=== PATIENT | female | born 1955 | race Caucasian/White ===

== ENCOUNTER 2020-12-04 19:57 | Inpatient (IN) ==
[2020-12-05] MEDS: *HR* OxyCODONE Immed Rel 5 MG TABLET PO PRN (23:07)
[2020-12-05] MEDS: CEFADROXIL 1 GM PO SCH (23:10)
[2020-12-06] MEDS: *HR* OxyCODONE Immed Rel 5 MG TABLET PO PRN ×3 (06:48→22:20)
[2020-12-06 07:26] LABS: Basophils # 0.1 K/mcL (0.0-0.2); Basophils % 0.7 %; Eosinophils # 0.7 K/mcL (0.0-0.6); Eosinophils % 5.7 %; Hematocrit 27.8 % (35.3-44.9); Hemoglobin 8.9 g/dL (11.5-15.4); Immature Granulocytes % 0.6 % (0-4); Lymphocytes # 1.2 K/mcL (0.6-4.6); Lymphocytes % 9.6 %; Mean Corpuscular Hemoglobin 31.9 pg (28.0-33.3); Mean Corpuscular Volume 99.6 fL (83.0-100.0); Mean Platelet Volume 10.1 fL (9.4-12.4); Monocytes # 1.1 K/mcL (0.0-1.3); Monocytes % 9.1 %; Platelet Count 283 K/mcL (140-400); Red Blood Count 2.79 M/mcL (3.82-4.97); Red Cell Distribution Width 13.2 % (11.5-14.5); Segmented Neutrophils % 74.3 %; White Blood Count 12.1 K/mcL (4.3-11.1)
[2020-12-06 07:51] LABS: Alanine Aminotransferase 14 Units/L (7-52); Albumin 2.8 g/dL (3.5-5.7); Albumin/Globulin Ratio 1.1 (1.1-2.2); Alkaline Phosphatase 81 Units/L (34-104); Aspartate Amino Transferase 23 Units/L (13-39); BUN/Creatinine Ratio 38 (6-26); Bilirubin,Total 0.7 mg/dL (0.3-1.0); Blood Urea Nitrogen 26 mg/dL (8-23); Calcium 8.3 mg/dL (8.6-10.3); Carbon Dioxide 31 mEq/L (23-29); Chloride 100 mEq/L (98-107); Globulin 2.5 g/dL (2.4-3.5); Glucose 114 mg/dL (70-105); Osmolality,Calculated 288 (280-300); Potassium 4.2 mEq/L (3.5-5.1); Sodium 136 mEq/L (136-145); Total Protein 5.3 g/dL (6.4-8.9); eGFR For African Americans > 60 (> 60); eGFR For Non-African Americans > 60 (> 60)
[2020-12-06] MEDS ORDERED: Losartan/HCTZ 50-12.5 TABLET PO SCH (09:00)
[2020-12-06] MEDS: Folic Acid 1 MG TABLET PO SCH (09:41)
[2020-12-06] MEDS: *HR* Rivaroxaban 10 MG TABLET PO SCH (09:42)
[2020-12-06] MEDS: Multivit/Ca/Min/Fe/FA 1 TAB TABLET PO SCH (09:42)
[2020-12-06] MEDS: CEFADROXIL 1 GM PO SCH (09:58)
[2020-12-06] MEDS: (Omega-3/Dha/Epa/Fish Oil [Fish Oil 1,000 Mg Softgel] PO SCH ×2 (09:58→22:19)
[2020-12-06] MEDS ORDERED: Bisacodyl 10 MG RECTAL SUPPOSITORY RC PRN (11:06)
[2020-12-06] MEDS: Sennosides/Docusate Sodium TABLET PO SCH ×2 (14:19→22:20)
[2020-12-06] MEDS: polyethylene glycoL 3350 17 GM POWD.PACK PO SCH (14:19)
[2020-12-06] MEDS: MOM Conc 10 ML UD.LIQ PO PRN (14:20)
[2020-12-06] MEDS: cephALEXin 500 MG CAPSULE PO SCH ×2 (14:21→22:19)
[2020-12-07] MEDS: *HR* OxyCODONE Immed Rel 5 MG TABLET PO PRN ×3 (05:43→21:30)
[2020-12-07] MEDS: Folic Acid 1 MG TABLET PO SCH (09:58)
[2020-12-07] MEDS: Sennosides/Docusate Sodium TABLET PO SCH ×2 (09:58→21:28)
[2020-12-07] MEDS: cephALEXin 500 MG CAPSULE PO SCH ×3 (09:58→21:27)
[2020-12-07] MEDS: (Omega-3/Dha/Epa/Fish Oil [Fish Oil 1,000 Mg Softgel] PO SCH ×2 (09:58→21:34)
[2020-12-07] MEDS: *HR* Rivaroxaban 10 MG TABLET PO SCH (09:58)
[2020-12-07] MEDS: Multivit/Ca/Min/Fe/FA 1 TAB TABLET PO SCH (09:58)
[2020-12-07] MEDS: polyethylene glycoL 3350 17 GM POWD.PACK PO SCH (10:01)
[2020-12-07] MEDS ORDERED: Lactulose Oral Soln 20 GM/30 ML UDC PO PRN (15:48)
[2020-12-07] MEDS: Latanoprost 2.5 ML BOTTLE LEFT EYE SCH (21:34)
[2020-12-08] MEDS: *HR* OxyCODONE Immed Rel 5 MG TABLET PO PRN ×3 (04:55→21:52)
[2020-12-08] MEDS: MOM Conc 10 ML UD.LIQ PO PRN (04:56)
[2020-12-08 06:58] LABS: Basophils # 0.1 K/mcL (0.0-0.2); Basophils % 0.9 %; Eosinophils # 0.8 K/mcL (0.0-0.6); Eosinophils % 5.9 %; Hemoglobin 9.4 g/dL (11.5-15.4); Immature Granulocytes % 0.5 % (0-4); Lymphocytes % 7.1 %; Mean Corpuscular HGB Conc 32.4 g/dL (31.6-35.5); Mean Corpuscular Volume 98.6 fL (83.0-100.0); Monocytes # 0.8 K/mcL (0.0-1.3); Monocytes % 6.3 %; Neutrophils # 10.6 K/mcL (1.6-8.9); Platelet Count 347 K/mcL (140-400); Red Blood Count 2.94 M/mcL (3.82-4.97); Red Cell Distribution Width 13.1 % (11.5-14.5); Segmented Neutrophils % 79.3 %; White Blood Count 13.4 K/mcL (4.3-11.1)
[2020-12-08] MEDS: Sennosides/Docusate Sodium TABLET PO SCH ×2 (08:33→21:53)
[2020-12-08] MEDS: *HR* Rivaroxaban 10 MG TABLET PO SCH (08:33)
[2020-12-08] MEDS: polyethylene glycoL 3350 17 GM POWD.PACK PO SCH (08:33)
[2020-12-08] MEDS: cephALEXin 500 MG CAPSULE PO SCH ×3 (08:33→21:51)
[2020-12-08] MEDS: Multivit/Ca/Min/Fe/FA 1 TAB TABLET PO SCH (08:33)
[2020-12-08] MEDS: Folic Acid 1 MG TABLET PO SCH (08:33)
[2020-12-08] MEDS: (Omega-3/Dha/Epa/Fish Oil [Fish Oil 1,000 Mg Softgel] PO SCH ×2 (08:34→21:51)
[2020-12-08] MEDS: Latanoprost 2.5 ML BOTTLE LEFT EYE SCH (21:51)
[2020-12-09] MEDS: *HR* OxyCODONE Immed Rel 5 MG TABLET PO PRN ×2 (05:46→20:12)
[2020-12-09] MEDS: cephALEXin 500 MG CAPSULE PO SCH ×3 (08:47→20:09)
[2020-12-09] MEDS: *HR* Rivaroxaban 10 MG TABLET PO SCH (08:47)
[2020-12-09] MEDS: polyethylene glycoL 3350 17 GM POWD.PACK PO SCH (08:47)
[2020-12-09] MEDS: Folic Acid 1 MG TABLET PO SCH (08:47)
[2020-12-09] MEDS: Multivit/Ca/Min/Fe/FA 1 TAB TABLET PO SCH (08:47)
[2020-12-09] MEDS: (Omega-3/Dha/Epa/Fish Oil [Fish Oil 1,000 Mg Softgel] PO SCH ×2 (08:48→20:09)
[2020-12-09] MEDS: Sennosides/Docusate Sodium TABLET PO SCH ×2 (08:48→20:09)
[2020-12-09 13:40] LABS: Basophils # 0.1 K/mcL (0.0-0.2); Eosinophils # 0.7 K/mcL (0.0-0.6); Eosinophils % 4.7 %; Hemoglobin 9.6 g/dL (11.5-15.4); Immature Granulocytes % 0.4 % (0-4); Lymphocytes # 1.3 K/mcL (0.6-4.6); Lymphocytes % 9.3 %; Monocytes # 0.8 K/mcL (0.0-1.3); Monocytes % 5.8 %; Neutrophils # 11.3 K/mcL (1.6-8.9); Platelet Count 453 K/mcL (140-400); Red Cell Distribution Width 13.2 % (11.5-14.5); Segmented Neutrophils % 78.8 %; White Blood Count 14.3 K/mcL (4.3-11.1)
[2020-12-09 13:53] LABS: BUN/Creatinine Ratio 28 (6-26); Blood Urea Nitrogen 22 mg/dL (8-23); Calcium 8.9 mg/dL (8.6-10.3); Carbon Dioxide 31 mEq/L (23-29); Chloride 98 mEq/L (98-107); Glucose 119 mg/dL (70-105); Osmolality,Calculated 286 (280-300); Potassium 4.8 mEq/L (3.5-5.1); Sodium 136 mEq/L (136-145); eGFR For African Americans > 60 (> 60); eGFR For Non-African Americans > 60 (> 60)
[2020-12-09] MEDS: Latanoprost 2.5 ML BOTTLE LEFT EYE SCH (20:09)
[2020-12-10] MEDS: *HR* OxyCODONE Immed Rel 5 MG TABLET PO PRN ×2 (05:15→22:18)
[2020-12-10 05:55] LABS: Bilirubin,Urine Negative (Negative); Blood,Urine Negative (Negative); Clarity,Urine Clear (Clear); Color,Urine Yellow (Yellow); Glucose,Urine (UA) Normal (Normal); Ketones,Urine Negative (Negative); Leukocyte Esterase,Urine Negative (Negative); Nitrite,Urine Negative (Negative); PH,Urine 6.5 pH Units (5.0-8.0); Protein,Urine Negative (Neg-Trace); Specific Gravity,Urine 1.025 (1.010-1.025); Urobilinogen,Urine Normal (Normal)
[2020-12-10 06:13] LABS: Basophils # 0.1 K/mcL (0.0-0.2); Basophils % 1.2 %; Eosinophils # 0.7 K/mcL (0.0-0.6); Eosinophils % 6.9 %; Hematocrit 27.6 % (35.3-44.9); Hemoglobin 8.6 g/dL (11.5-15.4); Immature Granulocytes % 0.6 % (0-4); Lymphocytes # 1.8 K/mcL (0.6-4.6); Lymphocytes % 17.1 %; Mean Corpuscular HGB Conc 31.2 g/dL (31.6-35.5); Mean Corpuscular Volume 99.6 fL (83.0-100.0); Mean Platelet Volume 10.2 fL (9.4-12.4); Monocytes # 0.8 K/mcL (0.0-1.3); Monocytes % 7.3 %; Platelet Count 401 K/mcL (140-400); Red Blood Count 2.77 M/mcL (3.82-4.97); Red Cell Distribution Width 13.2 % (11.5-14.5); Segmented Neutrophils % 66.9 %; White Blood Count 10.4 K/mcL (4.3-11.1)
[2020-12-10] MEDS: polyethylene glycoL 3350 17 GM POWD.PACK PO SCH (09:46)
[2020-12-10] MEDS: Sennosides/Docusate Sodium TABLET PO SCH ×2 (09:46→22:17)
[2020-12-10] MEDS: (Omega-3/Dha/Epa/Fish Oil [Fish Oil 1,000 Mg Softgel] PO SCH ×2 (09:46→22:17)
[2020-12-10] MEDS: *HR* Rivaroxaban 10 MG TABLET PO SCH (09:47)
[2020-12-10] MEDS: Multivit/Ca/Min/Fe/FA 1 TAB TABLET PO SCH (09:47)
[2020-12-10] MEDS: cephALEXin 500 MG CAPSULE PO SCH ×3 (09:47→22:17)
[2020-12-10] MEDS: Folic Acid 1 MG TABLET PO SCH (09:47)
[2020-12-10] MEDS: Latanoprost 2.5 ML BOTTLE LEFT EYE SCH (22:18)
[2020-12-11] MEDS: *HR* OxyCODONE Immed Rel 5 MG TABLET PO PRN (06:32)
[2020-12-11] MEDS: cephALEXin 500 MG CAPSULE PO SCH (08:53)
[2020-12-11] MEDS: Folic Acid 1 MG TABLET PO SCH (08:53)
[2020-12-11] MEDS: *HR* Rivaroxaban 10 MG TABLET PO SCH (08:53)
[2020-12-11] MEDS: Multivit/Ca/Min/Fe/FA 1 TAB TABLET PO SCH (08:53)
[2020-12-11] MEDS: (Omega-3/Dha/Epa/Fish Oil [Fish Oil 1,000 Mg Softgel] PO SCH (09:27)
[2020-12-11] MEDS: Sennosides/Docusate Sodium TABLET PO SCH (09:27)
[2020-12-11] MEDS: polyethylene glycoL 3350 17 GM POWD.PACK PO SCH (09:27)
[2020-12-11 09:53] VITALS: BP 106/70
== END 2020-12-11 13:30 | disposition home or self-care (01) | DRG 560 ==
LOC: INPGRE 12-05 20:08
PROVIDERS: ADMIT Family Medicine; ATTEND Family Medicine